=== PATIENT | female | born 1990 | race Asian ===

== ENCOUNTER 2017-02-08 00:01 | Inpatient (IN) | payer SELFPAY ==
[~2017-02-08] VITALS: Ht 160 cm; Wt 62.6 kg
[2017-02-08] MEDS ORDERED: LACTATED RINGERS 1,000 ML IV SCH (00:09)
[2017-02-08] MEDS ORDERED: OXYTOCIN 10 UNITS/ML VIAL IM SCH (00:10)
[2017-02-08] MEDS ORDERED: OXYTOCIN 20 UNITS/LR PREMIX 1,000 ML IV SCH (00:10)
[2017-02-08] MEDS ORDERED: PROMETHAZINE 25 MG/ML VIAL IVP PRN (00:10)
[2017-02-08] MEDS ORDERED: NALBUPHINE HYDROCHLORIDE 10 MG/ML VIAL IVP PRN (00:10)
[2017-02-08] MEDS ORDERED: LACTATED RINGERS 500 ML IV SCH (00:10)
[2017-02-08] MEDS ORDERED: MISOPROSTOL 25 MCG TAB VG PRN (00:15)
[2017-02-08 00:43] LABS: BASOPHILS % (AUTO) 0.6 % (0.0-2.0); EOSINOPHILS # (AUTO) 0.1 K/uL (0-0.4); EOSINOPHILS % (AUTO) 2.2 % (0.0-4.0); HEMATOCRIT 33.8 % (36-48); HEMOGLOBIN 10.9 g/dL (12.0-16.0); LYMPHOCYTES # (AUTO) 1.5 K/uL (2.5-16.5); LYMPHOCYTES % (AUTO) 23.5 % (20.5-51.1); MEAN CORPUSCULAR HEMOGLOBIN 29 pg (27-31); MEAN CORPUSCULAR HGB CONC 32 g/dL (33-37); MEAN CORPUSCULAR VOLUME 91 fL (80-94); MONOCYTES # (AUTO) 0.4 K/uL (0.8-1.0); MONOCYTES % (AUTO) 6.6 % (1.7-9.3); NEUTROPHILS # (AUTO) 4.3 K/uL (1.8-7.7); NEUTROPHILS % (AUTO) 67.1 % (42.2-75.2); PLATELET COUNT (AUTO) 128 K/uL (140-450); RED BLOOD CELL COUNT(AUTO) 3.73 MIL/uL (4.20-5.40); RED CELL DISTRIBUTION WIDTH 12.9 % (11.6-13.7); WHITE BLOOD COUNT (AUTO) 6.3 K/uL (4.8-10.8)
[2017-02-08 01:05] VITALS: BP 102/67
[2017-02-08] MEDS ORDERED: MISOPROSTOL 25 MCG TAB ONE (01:07)
[2017-02-08 01:09] LABS: APPEARANCE,URINE CLEAR (CLEAR); BILIRUBIN,URINE NEGATIVE (NEGATIVE); BLOOD, URINE TRACE-L (NEGATIVE); COLOR,URINE YELLOW (YELLOW); LEUKOCYTE ESTERASE ,URINE NEGATIVE (NEGATIVE); NITRITE, URINE NEGATIVE (NEGATIVE); PROTEIN,URINE NEGATIVE (NEGATIVE); UGLUCOSE NEGATIVE (NEGATIVE); UROBILINOGEN,URINE 0.2 EU/dL (0.2 - 1)
[2017-02-08 01:30] LABS: HIV RAPID SCREEN NON-REACTIVE (NON REACTIV)
[2017-02-08] MEDS ORDERED: FERR-193 PO (01:51)
[2017-02-08] MEDS ORDERED: THYROID MED (01:51)
[2017-02-08] MEDS ORDERED: PREN-546 PO (01:51)
[2017-02-08 03:24] LABS: BACTERIA,URINE None Seen /HPF (None Seen); MUCUS,URINE 3+ /LPF (None Seen); RBC,URINE 0-5 (RARE) /HPF (0-5); SQUAMOUS EPITHELIAL CELL,UR 0-3 (FEW) /LPF (0-3 (FEW)); WBC,URINE 0-5 (RARE) /HPF (0-5)
[2017-02-08] MEDS ORDERED: OXYTOCIN 20 UNITS/LR PREMIX 1,000 ML IV ONE (05:30)
[2017-02-08 07:01] LABS: RAPID PLASMA REAGIN NON-REACTIVE (Non Reactiv)
[2017-02-08] MEDS ORDERED: [UNRECOGNIZED DRUG - OTHER] (07:13)
[2017-02-08] MEDS ORDERED: ROPIVACAINE 0.2%/NS PREMIX 250 ML EPI ONE (07:36)
--- NOTE | 2017-02-08 08:04 | NUR ---
PATIENT HAS BEEN SCREENED AND CATEGORIZED LOW NUTRITION RISK. PATIENT WILL BE SEEN WITHIN 7 DAYS OF ADMISSION. 02/14/[address]
[2017-02-08] MEDS ORDERED: OXYTOCIN 10 UNITS/ML VIAL ONE (09:51)
[2017-02-08] MEDS ORDERED: ROPIVACAINE 0.2%/NS PREMIX 250 ML EPI SCH (10:00)
[2017-02-08] MEDS ORDERED: AMPICILLIN 2,000 MG VIAL ONE (13:57)
[2017-02-08] MEDS ORDERED: oxyCODONE/APAP 5/325 MG 1 TAB TAB PO PRN (17:15)
[2017-02-08] MEDS ORDERED: MEASLES, MUMPS, AND RUBELLA 1 VIAL SQVAC PRN (17:15)
[2017-02-08] MEDS ORDERED: BENZOCAINE/MENTHOL 20%-0.5% 60 GM CAN TP PRN (17:15)
[2017-02-08] MEDS ORDERED: HYDROcodone/APAP 5/325 MG 1 TAB TAB PO PRN (17:15)
[2017-02-08] MEDS ORDERED: METHYLERGONOVINE 0.2 MG/ML AMP IM PRN (17:15)
[2017-02-08] MEDS ORDERED: WITCH HAZEL 40 PAD PACKAGE TP PRN (17:15)
[2017-02-08] MEDS: IBUPROFEN 800 MG TAB PO PRN (20:56)
[2017-02-08] MEDS ORDERED: TEMAZEPAM 15 MG CAP PO PRN (21:00)
[2017-02-08] MEDS ORDERED: DOCUSATE SOD/SENNA 50/8.6 MG 1 TAB PO SCH (21:00)
[2017-02-09] MEDS: IBUPROFEN 800 MG TAB PO PRN ×2 (06:07→15:04)
[2017-02-09 06:52] LABS: HEMATOCRIT 34.1 % (36-48); HEMOGLOBIN 11.3 g/dL (12.0-16.0)
== END 2017-02-09 18:30 | disposition home or self-care (01) | DRG 775 ==
LOC: MLD 00:01 → MFCC 20:06
PROVIDERS: ADMIT Obstetrics & Gynecology; ATTEND Obstetrics & Gynecology
PROC: 10E0XZZ Delivery of Products of Conception, External Approach (ICD-10-PCS; principal; 2017-02-08)
PROC: 10907ZC Drainage of Amniotic Fluid, Therapeutic from Products of Conception, Via Natural or Artificial Opening (ICD-10-PCS; 2017-02-08)
PROC: 0W8NXZZ Division of Female Perineum, External Approach (ICD-10-PCS; 2017-02-08)
PROC: 3E0P7GC Introduction of Other Therapeutic Substance into Female Reproductive, Via Natural or Artificial Opening (ICD-10-PCS; 2017-02-08)
PROC: 00HU33Z Insertion of Infusion Device into Spinal Canal, Percutaneous Approach (ICD-10-PCS; 2017-02-08)
PROC: 3E0R3CZ (ICD-10-PCS; 2017-02-08)
DX: O99.284 Endocrine, nutritional and metabolic diseases complicating childbirth (principal); E07.9 Disorder of thyroid, unspecified; Z37.0 Single live birth; Z3A.40 40 weeks gestation of pregnancy; Z83.3 Family history of diabetes mellitus; Z82.49 Family history of ischemic heart disease and other diseases of the circulatory system; Z83.49 Family history of other endocrine, nutritional and metabolic diseases; Z28.21 Immunization not carried out because of patient refusal
CPT/HCPCS: 36415; 51702; 59200; 59409; 81001; 85018; 85025; 86592; 86886; 86900; 86901; J0290; J2590; J2795; J7120